=== PATIENT | male | born 1985 | race Caucasian/White ===

== ENCOUNTER 2018-08-17 09:26 | Emergency (ER) | payer OTHER, SELFPAY ==
--- NOTE | 2018-08-17 10:09 | RAD REPORT ---
EXAM DESCRIPTION: CT - Stone Protocol - 08/17/2018 9:58 am CLINICAL HISTORY: Flank pain. FLANK PAIN COMPARISON: No comparisons TECHNIQUE: Axial images were obtained without oral or IV contrast. Lack of contrast limits solid org an and vascular assessment. The [id number] spans the entirety of the system partially obscuring uppermost abdomen and lung bases. Coronal reformatted images were obtained and reviewed. All CT scans are performed using dose optimization technique as appropriate and may include automated exposure control or mA/KV adjustment according to patient size. FINDINGS: The lower lung arrington are clear. Imaged portions of the liver and spleen show no suspicious findings on non-contrast imaging. The panc reas and adrenal glands are normal. No pathologic lymphadenopathy in the abdomen or pelvis. 2 mm stone is present at the left UVJ resulting in mild left hydronephrosis. Punctate stone is presen t mid-pole left kidney. No bowel obstruction, free air, free fluid or abscess. Normal appendix noted.Small fat containing umb ilical hernia. No significant bony abnormality. IMPRESSION: 2 mm stone at the left UVJ resulting in mild left hydronephrosis. Additional left nephrolithiasis.
[2018-08-17 10:11] LABS: Absolute Lymphocytes (CBC) 1.7 K/uL (0.7-4.9); Absolute Neutrophil 9.1 K/uL (1.8-8.0); Basophils % 0.4 % (0-1.3); Eosinophils % 1.1 % (0-4.4); Hematocrit 44.3 % (39.6-49.0); Lymphocytes % 14.3 % (15.3-44.8); MCH 32.9 pg (27.0-35.0); MCV 94.1 fL (80-100); MPV 8.5 fL (7.6-11.3); Monocytes % 8.4 % (3.3-12.3); RBC Red Blood Cell Count 4.71 M/uL (4.33-5.43)
[2018-08-17 10:12] LABS: Urine Blood 2+ (NEG); Urine Glucose 3+ (NEG); Urine Protein 3+ (NEG); Urine Specific Gravity 1.015 (1.005-1.030)
[2018-08-17 10:19] LABS: Urine Amorphous Sediment 3+ /HPF (NONE SEEN); Urine Bacteria 20-50 /HPF (NONE SEEN); Urine Culture Reflex Order REFLEXED
[2018-08-17 10:20] LABS: Potassium 4.3 mmol/L (3.5-5.1)
[2018-08-17] MEDS ORDERED: TAMSULOSIN 0.4 MG SR CAP ONE (10:23)
[2018-08-17] MEDS ORDERED: MORPHINE 4 MG/ML SYR ONE (10:23)
[2018-08-17] MEDS ORDERED: ONDANSETRON 4 MG/2 ML VIAL ONE (10:23)
[2018-08-17] MEDS ORDERED: CEFTRIAXONE/SWI 1gm 1 GM/10 ML SYR ONE (10:24)
[2018-08-17] MEDS ORDERED: MAGNESIUM SULFATE 1 gm IVPB 1 GM/100 ML BAG IV ONE (10:24)
[2018-08-17] MEDS ORDERED: NA CHLORIDE 0.9% 1,000 ML ONE (10:24)
--- NOTE | 2018-08-17 11:50 | EDPHYS ---
Physician Documentation [facility] Name: Darrius Davis Age: 33 yrs Sex: Male : 1985 Arrival Date: 08/17/2018 Time: 09:29 Bed 17 Private MD: None, None ED Physician Luis Gilliland HPI: 08/17 10:21 This 33 yrs old Male presents to ER via Ambulatory with complaints of Urinary kb Problem, Vomiting. 10:21 The patient complains of pain in the left flank. The pain radiates to the left lower kb quadrant. Onset: The symptoms/episode began/occurred this morning. Modifying factors: The symptoms are alleviated by nothing. the symptoms are aggravated by palpation/percussion. Associated signs and symptoms: Pertinent positives: hematuria, nausea, vomiting. Severity of pain: At its worst the pain was moderate in the emergency department the pain is unchanged. The patient has experienced a previous episode. The patient has not recently seen a physician. Historical: - Allergies: 09:40 No Known Allergies; hj - Home Meds: 09:40 None [Active]; hj - PMHx: 09:40 Kidney stones; hj - PSHx: 09:40 eye surgery; hj - Immunization history:: Adult Immunizations up to date. - Social history:: Smoking status: Patient uses tobacco products, Patient/guardian denies using alcohol. - Ebola Screening: : Patient negative for fever greater than or equal to 101.5 degrees Fahrenheit, and additional compatible Ebola Virus Disease symptoms Patient denies exposure to infectious person Patient denies travel to an Ebola-affected area in the 21 days before illness onset. ROS: 10:20 Constitutional: Negative for fever, chills, and weight loss, Cardiovascular: Negative kb for chest pain, palpitations, and edema, Respiratory: Negative for shortness of breath, cough, wheezing, and pleuritic chest pain, MS/Extremity: Negative for injury and deformity, Skin: Negative for injury, rash, and discoloration, Neuro: Negative for headache, weakness, numbness, tingling, and seizure. 10:20 Abdomen/GI: Positive for abdominal pain, nausea and vomiting. 10:20 : Positive for urinary symptoms, flank pain, hematuria, difficulty urinating. Exam: 10:21 Constitutional: This is a well developed, well nourished patient who is awake, alert, kb and in no acute distress. Head/Face: Normocephalic, atraumatic. Chest/axilla: Normal chest wall appearance and motion. Nontender with no deformity. No lesions are appreciated. Cardiovascular: Regular rate and rhythm with a normal S1 and S2. No gallops, murmurs, or rubs. Normal PMI, no JVD. No pulse deficits. Respiratory: Lungs have equal breath sounds bilaterally, clear to auscultation and percussion. No rales, rhonchi or wheezes noted. No increased work of breathing, no retractions or nasal flaring. Abdomen/GI: Soft, non-tender, with normal bowel sounds. No distension or tympany. No guarding or rebound. No evidence of tenderness throughout. Skin: Warm, dry with normal turgor. Normal color with no rashes, no lesions, and no evidence of cellulitis. MS/ Extremity: Pulses equal, no cyanosis. Neurovascular intact. Full, normal range of motion. Neuro: Awake and alert, GCS 15, oriented to person, place, time, and situation. Cranial nerves II-XII grossly intact. Motor strength 5/5 in all extremities. Sensory grossly intact. Cerebellar exam normal. Normal gait. 10:21 Back: CVA tenderness, that is mild, is noted on the left. Vital Signs: 09:40 BP 148 / 89; Pulse 102; Resp 18; Temp 97.2(TE); Pulse Ox 100% on R/A; Weight 102.06 kg; hj Height 5 ft. 11 in. (180.34 cm); Pain 9/10; 11:10 BP 140 / 89; Pulse 66; Resp 19; Pulse Ox 99% on R/A; aj 12:28 BP 128 / 76; Pulse 87; Resp 17; Pulse Ox 99% on R/A; aj 09:40 Body Mass Index 31.38 (102.06 kg, 180.34 cm) MDM: 09:36 Patient medically screened. kb 10:20 Data reviewed: vital signs, nurses notes. Data interpreted: Pulse oximetry: on room air kb is 100 %. Interpretation: normal. 11:15 Counseling: I had a detailed discussion with the patient and/or guardian regarding: the kb historical points, exam findings, and any diagnostic results supporting the discharge/admit diagnosis, lab results, radiology results, the need for outpatient follow up, a family practitioner, a urologist, to return to the emergency department if symptoms worsen or persist or if there are any questions or concerns that arise at home. 08/17 09:42 Order name: Urine Microscopic Only; Complete Time: 10:20 hj 08/17 09:47 Order name: Basic Metabolic Panel; Complete Time: 10:24 kb 08/17 09:47 Order name: CBC with Diff; Complete Time: 10:24 kb 08/17 09:47 Order name: CT Stone Protocol; Complete Time: 10:10 kb 08/17 09:58 Order name: Urine Dipstick--Ancillary (enter results); Complete Time: 10:12 bd 08/17 10:20 Order name: Urine Culture EDMS 08/17 09:41 Order name: Urine Dipstick-Ancillary (obtain specimen); Complete Time: 09:42 hj 08/17 09:47 Order name: IV Saline Lock; Complete Time: 09:59 kb 08/17 09:47 Order name: Labs collected and sent; Complete Time: 09:59 kb Administered Medications: 10:26 Drug: Zofran 4 mg Route: IVP; Site: right forearm; aj 12:29 Follow up: Response: Pain is decreased; Nausea is decreased aj 10:27 Drug: NS 0.9% 1000 ml Route: IV; Rate: 1000 ml; Site: right forearm; aj 12:29 Follow up: Response: No adverse reaction; IV Status: Completed infusion; IV Intake: aj 1000ml 10:28 Drug: morphine 4 mg Route: IVP; Site: right forearm; aj 12:30 Follow up: Response: Pain is decreased aj 10:28 Drug: Magnesium Sulfate 1 grams Route: IVPB; Infused Over: 30 mins; Site: right forearm;aj 12:30 Follow up: Response: No adverse reaction; IV Status: Completed infusion; IV Intake: aj 100ml 10:28 Drug: Rocephin - (cefTRIAXone) 1 grams Route: IVPB; Infused Over: 30 mins; Site: right aj forearm; 10:30 Follow up: Response: No adverse reaction; IV Status: Completed infusion; IV Intake: 10mlaj 10:29 Drug: Flomax 0.4 mg Route: PO; aj 12:31 Follow up: Response: No adverse reaction aj Disposition: 08/18 10:42 Co-signature as Attending Physician, Luis Gilliland MD. ma2 Disposition: 08/17/18 11:49 Discharged to Home. Impression: Calculus of kidney and ureter. - Condition is Stable. - Discharge Instructions: Kidney Stones, [id number], Dietary Guidelines to Help Prevent Kidney Stones. - Prescriptions for Augmentin 875- 125 mg Oral Tablet - take 1 tablet by ORAL route every 12 hours for 10 days; 20 tablet. Tylenol- Codeine #3 300-30 mg Oral Tablet - take 1 tablet by ORAL route every 6 hours As needed; 15 tablet. Zofran 4 mg Oral Tablet - take 1 tablet by ORAL route every 6 hours As needed; 20 tablet. Flomax 0.4 mg Oral Capsule, Sust. Release 24 hr - take 1 capsule by ORAL route once daily 1/2 hour following the same meal each day; 10 capsule. Diclofenac Sodium 75 mg Oral Tablet, Delayed Release (E.C.) - take 1 tablet by ORAL route 2 times per day As needed; 30 tablet. - Medication Reconciliation Form, Thank You Letter, Antibiotic Education, Prescription Opioid Use form. - Follow up: Emergency Department; When: As needed; Reason: Worsening of condition. Follow up: Private Physician; When: 2 - 3 days; Reason: Recheck today's complaints, Continuance of care, Re-evaluation by your physician. Follow up: Octavia Whelan; When: 1 - 2 days; Reason: Recheck today's complaints. Signatures: Dispatcher [employer] EDTX Moni Nye, RAPHAEL TYSONP-Ariane Ervin RN RN aj Joaquin, Henry, RN RN hj Alzahri, Mohammad, MD MD ma2 Corrections: (The following items were deleted from the chart) 08/17 12:31 11:49 08/17/2018 11:49 Discharged to Home. Impression: Calculus of kidney and ureter. aj Condition is Stable. Discharge Instructions: Kidney Stones, [id number], Dietary Guidelines to Help Prevent Kidney Stones. Prescriptions for Augmentin 875-125 mg Oral Tablet - take 1 tablet by ORAL route every 12 hours for 10 days; 20 tablet, Tylenol-Codeine #3 300-30 mg Oral Tablet - take 1 tablet by ORAL route every 6 hours As needed; 15 tablet, Zofran 4 mg Oral Tablet - take 1 tablet by ORAL route every 6 hours As needed; 20 tablet, Flomax 0.4 mg Oral Capsule, Sust. Release 24 hr - take 1 capsule by ORAL route once daily 1/2 hour following the same meal each day; 10 capsule, Diclofenac Sodium 75 mg Oral Tablet, Delayed Release (E.C.) - take 1 tablet by ORAL route 2 times per day As needed; 30 tablet. and Forms are Medication Reconciliation Form, Thank You Letter, Antibiotic Education, Prescription Opioid Use. Follow up: Emergency Department; When: As needed; Reason: Worsening of condition. Follow up: Private Physician; When: 2 - 3 days; Reason: Recheck today's complaints, Continuance of care, Re-evaluation by your physician. Follow up: Octavia Whelan; When: 1 - 2 days; Reason: Recheck today's complaints. kb
--- NOTE | 2018-08-17 11:50 | ER ---
Nurse's Notes [facility] Name: Darrius Davis Age: 33 yrs Sex: Male : 1985 Arrival Date: 08/17/2018 Time: 09:29 Bed 17 Private MD: None, None Diagnosis: Calculus of kidney and ureter Presentation: 08/17 09:36 Presenting complaint: Patient states: i was awaken 3 am this morning with pain on my hj lower back and abdomen; i have hx of kidney stone, took tylenol 3 hours before coming here; reports nausea and vomiting; reports blood in vomit; reports chills; pain is 9/10;. Transition of care: patient was not received from another setting of care. Onset of symptoms was August 17, 2018. Risk Assessment: Do you want to hurt yourself or someone else? Patient reports no desire to harm self or others. Initial Sepsis Screen: Does the patient meet any 2 criteria? No. Patient's initial sepsis screen is negative. Does the patient have a suspected source of infection? No. Patient's initial sepsis screen is negative. Care prior to arrival: None. 09:36 Method Of Arrival: Ambulatory 09:36 Acuity: PRESTON 3 Triage Assessment: 09:38 General: Appears in no apparent distress. uncomfortable, Behavior is calm, cooperative, hj appropriate for age. Pain: Complains of pain in back and abdomen Pain currently is 10 out of 10 on a pain scale. Pain began 4 hours ago. EENT: No signs and/or symptoms were reported regarding the EENT system. Neuro: Level of Consciousness is awake, alert, obeys commands, Oriented to person, place, time, situation, Appropriate for age. Cardiovascular: Capillary refill < 3 seconds Patient's skin is warm and dry. Respiratory: Airway is patent Respiratory effort is even, unlabored, Respiratory pattern is regular, symmetrical. GI: Reports lower abdominal pain, nausea, vomiting. : No signs and/or symptoms were reported regarding the genitourinary system. Derm: No signs and/or symptoms reported regarding the dermatologic system. Musculoskeletal: No signs and/or symptoms reported regarding the musculoskeletal system. Historical: - Allergies: :40 No Known Allergies; hj - Home Meds: :40 None [Active]; hj - PMHx: :40 Kidney stones; hj - PSHx: 09:40 eye surgery; hj - Immunization history:: Adult Immunizations up to date. - Social history:: Smoking status: Patient uses tobacco products, Patient/guardian denies using alcohol. - Ebola Screening: : Patient negative for fever greater than or equal to 101.5 degrees Fahrenheit, and additional compatible Ebola Virus Disease symptoms Patient denies exposure to infectious person Patient denies travel to an Ebola-affected area in the 21 days before illness onset. Screenin:38 Abuse screen: Denies threats or abuse. Denies injuries from another. Nutritional hj screening: No deficits noted. Tuberculosis screening: No symptoms or risk factors identified. Fall Risk None identified. Assessment: 09:57 General: Appears in no apparent distress. comfortable, Behavior is calm, cooperative, aj appropriate for age. Pain: Complains of pain in anterior aspect of left lateral abdomen, posterior aspect of left lateral abdomen and left lower quadrant. Neuro: Level of Consciousness is awake, alert, obeys commands, Oriented to person, place, time, situation, Appropriate for age. Respiratory: Airway is patent Respiratory effort is even, unlabored, Respiratory pattern is regular, symmetrical. GI: Reports vomiting. : Reports blood in urine. Derm: Skin is intact, is healthy with good turgor, Skin is pink, warm \T\ dry. normal. 12:28 Reassessment: Patient appears in no apparent distress at this time. No changes from aj previously documented assessment. Patient and/or family updated on plan of care and expected duration. Pain level reassessed. Patient is alert, oriented x 3, equal unlabored respirations, skin warm/dry/pink. Patient denies pain at this time. Patient states feeling better. Patient states symptoms have improved. Vital Signs: 09:40 BP 148 / 89; Pulse 102; Resp 18; Temp 97.2(TE); Pulse Ox 100% on R/A; Weight 102.06 kg; Height 5 ft. 11 in. (180.34 cm); Pain 9/10; 11:10 BP 140 / 89; Pulse 66; Resp 19; Pulse Ox 99% on R/A; aj 12:28 BP 128 / 76; Pulse 87; Resp 17; Pulse Ox 99% on R/A; aj 09:40 Body Mass Index 31.38 (102.06 kg, 180.34 cm) ED Course: 09:29 Patient arrived in ED. mr 09:29 None, None is Private Physician. mr 09:36 Elias Brown, TOYA is Primary Nurse. hj 09:36 [facility]C [facility]. kb 09:36 Luis Gilliland MD is Attending Physician. kb 09:38 Triage completed. hj 09:39 Arm band placed on right wrist. hj 09:40 Patient has correct armband on for positive identification. Placed in gown. Bed in low hj position. Call light in reach. Side rails up X 1. Adult w/ patient. 09:[address] via wheelchair. mw3 09:54 CT completed. Patient moved back from CT. mw3 09:57 Inserted saline lock: 18 gauge in right forearm, using aseptic technique. Blood aj collected. 09:59 CT Stone Protocol In Process Unspecified. EDMS 11:49 Octavia Whelan MD is Referral Physician. kb 12:28 No provider procedures requiring assistance completed. IV discontinued, intact, aj bleeding controlled, No redness/swelling at site. Pressure dressing applied. Administered Medications: 10:26 Drug: Zofran 4 mg Route: IVP; Site: right forearm; aj 12:29 Follow up: Response: Pain is decreased; Nausea is decreased aj 10:27 Drug: NS 0.9% 1000 ml Route: IV; Rate: 1000 ml; Site: right forearm; aj 12:29 Follow up: Response: No adverse reaction; IV Status: Completed infusion; IV Intake: aj 1000ml 10:28 Drug: morphine 4 mg Route: IVP; Site: right forearm; aj 12:30 Follow up: Response: Pain is decreased aj 10:28 Drug: Magnesium Sulfate 1 grams Route: IVPB; Infused Over: 30 mins; Site: right forearm;aj 12:30 Follow up: Response: No adverse reaction; IV Status: Completed infusion; IV Intake: aj 100ml 10:28 Drug: Rocephin - (cefTRIAXone) 1 grams Route: IVPB; Infused Over: 30 mins; Site: right aj forearm; 10:30 Follow up: Response: No adverse reaction; IV Status: Completed infusion; IV Intake: 10mlaj 10:29 Drug: Flomax 0.4 mg Route: PO; aj 12:31 Follow up: Response: No adverse reaction aj Intake: 10:30 IV: 10ml; Total: 10ml. aj 12:29 IV: 1000ml; Total: 1010ml. aj 12:30 IV: 100ml; Total: 1110ml. aj Outcome: 11:49 Discharge ordered by . kb 12:28 Discharged to home ambulatory, with family. aj 12:28 Condition: good 12:28 Discharge instructions given to patient, family, Instructed on discharge instructions, follow up and referral plans. medication usage, Demonstrated understanding of instructions, follow-up care, medications, Prescriptions given X 5 12:31 Patient left the ED. aj Signatures: Dispatcher [employer] EDMS Moni Nye, DECKER OPERATOR-C DECKER OPERATOR-Ariane Ervin, RN RN Ashtyn Dawson Henry, RN RN Earnestine Starr mw3
== END 2018-08-17 12:31 | disposition home or self-care (01) ==
LOC: ER 09:26
DX: N20.2 Calculus of kidney with calculus of ureter (principal); Z72.0 Tobacco use
CPT/HCPCS: 36415; 74176; 76377; 80048; 81003; 81015; 85025; 87086; 87088; 96365; 96366; 96375; 99284; J0696; J2405; J3475; J7030